=== PATIENT | male | born 1945 | race Caucasian/White ===

== ENCOUNTER 2019-06-20 13:02 | Emergency (ER) | payer BC ==
[2019-06-20 14:45] VITALS: BP 142/59
--- NOTE | 2019-06-20 15:08 | UC ---
Skin Complaint HPI - HPI Summary HPI Summary: Mr. Shaffer comes in today concerned that he's got a rash in his right inguinal area and that it might be an infection. It doesn't hurt or itch he just noticed it today. He was diagnosed with hemorrhoid several days ago and has been using steroid cream. He also has an inguinal hernia that occasionally bothers him. - History of Current Complaint Chief Complaint: UCSkin Time Seen by Provider: 06/20/19 14:48 Stated Complaint: PERSONAL Pain Intensity: 0 - Allergy/Home Medications Allergies/Adverse Reactions: Allergies Allergy/AdvReac Type Severity Reaction Status Date / Time latex Allergy SKIN Verified 06/20/19 14:45 IRRITATION Penicillins Allergy Rash Verified 06/20/19 14:45 Home Medications: Home Medications Naproxen Sodium [Naproxen 220 mg] 220 mg PO BID PRN 06/20/19 [History Confirmed 06/20/19] PMH/Surg Hx/FS Hx/Imm Hx Previously Healthy: Yes - Surgical History Surgical History: Yes Surgery Procedure, Year, and Place: left eye RETINAL REPAIR. LEFT EYE VITRECTOMY/FLUID AIR EXCHANGE 09/27/13. LEFT EYE VITRECTOMY 11/17/14. wisdom teeth - Social History Alcohol Use: Weekly Substance Use Type: Marijuana Smoking Status (MU): Former Smoker When Did the Patient Quit Smoking/Using Tobacco: 1972 Review of Systems All Other Systems Reviewed And Are Negative: Yes Constitutional: Positive: Negative, Fatigue - A little tired the last couple days Skin: Positive: Rash Respiratory: Positive: Negative Cardiovascular: Positive: Negative Gastrointestinal: Positive: Negative Genitourinary: Positive: Other - The hemorrhoid does not hurt much but it is hard to the touch Physical Exam - Summary Physical Exam Summary: He is nontoxic in appearance with stable vitals Triage Information Reviewed: Yes Appearance: Well-Appearing Vital Signs: Initial Vital Signs Temp 98.5 F 06/20/19 14:39 Pulse 62 06/20/19 14:39 Resp 14 06/20/19 14:39 BP 142/59 06/20/19 14:39 Pulse Ox 99 06/20/19 14:39 Vital Signs Reviewed: Yes Abdominal Exam: Normal Male Genital Exam: Positive: Other - Small firm thrombosed external hemorrhoid only mildly tender Skin Exam: Other - He has some small linear areas of erythema in his right inguinal area there are few spots that slightly petechial. The rash doesn't florentino. Course/Dx - Course Course Of Treatment: I'm not sure what the rash is it does not appear to be infectious or allergic. He is concerned about a systemic infection and there is no evidence for that at this time. I recommended conservative treatment and follow-up if needed. - Diagnoses Provider Diagnosis: Rash and nonspecific skin eruption Discharge - Sign-Out/Discharge Documenting (check all that apply): Patient Departure All imaging exams completed and their final reports reviewed: No Studies - Discharge Plan Condition: Stable Disposition: HOME Patient Education Materials: Acute Rash (ED) Referrals: Renae López MD [Primary Care Provider] - - Billing Disposition and Condition Condition: STABLE Disposition: Home
== END 2019-06-20 15:20 | disposition home or self-care (01) ==
LOC: UCEAST 13:02
DX: R21 Rash and other nonspecific skin eruption (principal); Z87.891 Personal history of nicotine dependence; Z88.0 Allergy status to penicillin; Z91.040 Latex allergy status
CPT/HCPCS: 99211; G0463

== ENCOUNTER 2020-01-07 06:30 | Day surgery (SDC) | payer BC ==
[~2020-01-07 06:30] MED LIST: Acetaminophen TAB* 325 MG ONE; Acetaminophen TAB* 325 MG PO ONE; Buffered Lidocaine 1% SYRIN* 1 ML/SYRINGE INTRADERM ONE; Clindamycin 900 MG/D5W BAG(*) 900 MG/50 ML BAG IVPB ONE; Lactated Ringers 1000 ML Bag* 1,000 ML IV SCH
[2020-01-07] MEDS ORDERED: fentaNYL* 50 MCG/ML 5 ML VIAL (250 MCG VIAL) ONE (07:59)
[2020-01-07] MEDS ORDERED: Lidocaine 2% PF * 5 ML VIAL ONE (07:59)
[2020-01-07] MEDS ORDERED: Midazolam* 1 MG/ML 2 ML VIAL (2 MG) ONE (07:59)
[2020-01-07] MEDS ORDERED: Propofol* 10 MG/ML 20 ML BTL ONE (07:59)
[2020-01-07] MEDS ORDERED: Rocuronium* 10 MG/ML VIAL ONE ×2 (07:59→09:39)
[2020-01-07] MEDS ORDERED: Bupivacaine 0.5% W/EPI SDV* 30 ML VIAL ONE (08:28)
[2020-01-07] MEDS ORDERED: HYDROmorphone INJ1* 1 MG/ML SYRINGE ONE (09:00)
[2020-01-07] MEDS ORDERED: Dexamethasone IV* 4 MG/ML 1 ML (4 MG) ONE (09:00)
[2020-01-07] MEDS ORDERED: Ondansetron INJ* 2 MG/ML VIAL ONE (09:00)
[2020-01-07] MEDS ORDERED: Ketorolac INJ* 30 MG/ML 1 ML VIAL ONE (09:00)
[2020-01-07] MEDS ORDERED: oxyCODONE TAB* 5 MG TAB PO PRN (09:01)
[2020-01-07] MEDS ORDERED: Naloxone* 0.4 MG/ML 1 ML VIAL IV PRN (09:01)
[2020-01-07] MEDS ORDERED: HYDROmorphone INJ1* 1 MG/ML SYRINGE IV PRN (09:01)
[2020-01-07] MEDS ORDERED: PROCHLORPERAZINE INJ 5 MG/ML 2 ML VIAL IV PRN (09:01)
[2020-01-07] MEDS ORDERED: diPHENhydraMINE IV* 50 MG/ML 1 ml VIAL (BENADRYL) IV PRN (09:01)
[2020-01-07] MEDS ORDERED: KETAMINE HCL* 50 MG/ML 10 ML VIAL ONE (09:12)
[2020-01-07] MEDS ORDERED: Glycopyrrolate IV* 0.2 MG/ML 1 ML VIAL ONE (10:25)
[2020-01-07] MEDS ORDERED: Neostigmine Methylsulfate* 3 MG/3 ML SYRINGE ONE (10:26)
--- NOTE | 2020-01-07 10:32 | BRIEFOPN ---
Brief Operative/Procedure Note - Operation Details Pre-Op Diagnosis: Bilateral inguinal hernias Post-Op Diagnosis: same Procedures: laparoscopic repair bilateral inguinal hernias w/ mesh Surgeon(s)/Proceduralists: Lea. Assist: LUDWIN Romo Anesthesia: GET. Fluids: 1000 ml RL Estimated Blood Loss: none Findings: as above Specimen(s)/Culture(s) Description: none Complications: none
[2020-01-07 12:58] VITALS: BP 128/66
[2020-01-07] MEDS ORDERED: Ondansetron ODT TAB* 4 MG ONE (13:09)
--- NOTE | 2020-01-08 04:17 | OP ---
CC: Dr. Renae López * DATE OF OPERATION: 01/07/20 - [facility] DATE OF : 49 SURGEON: Conrad Tate MD. TOOL MAKER: LUDWIN Crook. ANESTHESIOLOGIST: Sierra Wild MD. ANESTHESIA: General with local anesthetic. PRE-OP DIAGNOSIS: Bilateral inguinal hernias. POST-OP DIAGNOSIS: Bilateral indirect inguinal hernias. OPERATIVE PROCEDURE: Totally extraperitoneal laparoscopic repair of bilateral indirect inguinal hernias with mesh. ESTIMATED BLOOD LOSS: Minimal. IV FLUIDS: 1 L of crystalloid. SPECIMENS: None. WOUND CLASSIFICATION: I. COMPLICATIONS: None. DRAINS: None. FINDINGS: Bilateral indirect inguinal hernias repaired with mesh. DESCRIPTION OF PROCEDURE: Written informed consent was obtained, both groins were marked with indelible ink, preoperative antibiotics were administered. The patient was taken to the operating room, placed in the supine position. Sequential compression devices and warming blanket were applied. General anesthesia was administered and a Suh catheter was inserted. The abdomen and both groins were prepped and draped in the usual sterile fashion. Time-out verification was completed. Initially, a small transverse incision was made at the midline and slightly to the left just below the umbilicus, carried down to the anterior rectus fascia on the left, which was then divided transversely and the muscle underneath was retracted laterally to expose the posterior sheath. This space was then developed bluntly and the Spacemaker balloon was inserted down to the pubic tubercle with care. The 10 mm camera was inserted and then the balloon was inflated with about 10 squeezes of the hand pump under direct vision with excellent dissection of the extraperitoneal space. The balloon was then deflated and removed. A 12 mm blunt port was inserted and the extraperitoneal space was insufflated to 12 mmHg, and the patient was placed in Trendelenburg position. Two 5 mm ports were placed in the midline just below our initial port placement. The dissection commenced by identifying in the midline the pubic tubercle and the Nolberto ligament on either side. We then turned to the right side and developed the space laterally and the anterior abdominal wall and iliopubic tract out to the iliac crest was identified and then we identified the peritoneal reflection as it coursed medially. As we followed this in, we identified the epigastric vessels in the usual position. Care was then taken to follow the peritoneal sac as it entered in the indirect space consistent with an indirect hernia. This was reduced without injury to the sac itself. We identified the spermatic cord and the vas deference, and these were protected from injury throughout. There were no cord lipomas noted. Once the peritoneum was reflected back up into the peritoneum, we continued this medially and there was no evidence of a direct space hernia. Likewise, we then turned our attention to the left side. The anterior abdominal wall on the left as well as iliopubic tract out to the iliac crest was developed and we were able to identify the peritoneal reflection as it coursed towards the internal ring. Here once again there was an indirect hernia sac extending in and this was reduced, but this was smaller than on the right side. No cord lipomas were noted. Once again, the spermatic cord in the left and the left vas deferens were identified and protected from injury throughout. The peritoneum was then reflected back posteriorly even more medial and the direct space was evaluated. There was no evidence of a direct space hernia. Next, we placed a 10 cm x 15 cm ProGrip self-gripping mesh into the extraperitoneal space and placed this on the left to cover both the direct and indirect space out to the iliac crest and slightly to the right of midline. This covered anteriorly as well and care was taken to prevent peritoneum from being in contact along the retroperitoneum. Likewise, a 10 cm x 15 cm ProGrip mesh was placed under the right side to cross the midline to the left. The mesh was unfolded to cover both the direct and indirect space and care was taken to prevent wrinkling or folding. Hemostasis was then assured. The extraperitoneal space was desufflated under direct vision. All ports were then removed. The anterior rectus sheath was closed with interrupted 0 Vicryl suture. The skin of all three incisions was approximated with subcuticular 4-0 Vicryl suture. Steri-Strips were applied. The patient tolerated the procedure well and was taken to the recovery room in stable condition. [id number]/[facility] #: [id number] LUANA
== END 2020-01-07 13:04 | disposition home or self-care (01) ==
LOC: OR 06:30
PROVIDERS: ATTEND Surgery
DX: K40.20 Bilateral inguinal hernia, without obstruction or gangrene, not specified as recurrent (principal); Z87.891 Personal history of nicotine dependence; I49.3 Ventricular premature depolarization; M19.90 Unspecified osteoarthritis, unspecified site; K58.9 Irritable bowel syndrome, unspecified; E80.4 Gilbert syndrome; Z88.0 Allergy status to penicillin
CPT/HCPCS: A9270-GY; C1781; J1100; J1170; J1885; J2250; J2405; J2704; J2710; J3010